=== PATIENT | female | born 1930 | race American Indian/Alaskan Native ===

== ENCOUNTER 2017-03-24 11:18 | Emergency (ER) | payer MEDICARE ==
[2017-03-24 12:25] VITALS: O2SAT 98
[2017-03-24 12:32] VITALS: BMI 28.1
--- NOTE | 2017-03-24 13:10 | ED PDOC ---
Arrival/HPI - General Historian: Patient <VANITA CURRIE - Last Filed: 03/24/17 14:32> <Ag Polanco DO - Last Filed: 03/24/17 14:36> - General Chief Complaint: Lower Extremity Problem/Injury Time Seen by Provider: 03/24/17 12:23 - History of Present Illness Narrative History of Present Illness (Text): 03/24/17 13:08 Mrs. Corey is a 86 year old female with a pmh significant for COPD, CHF, and hx of PNA who presents with great right toe pain. Pt reports going to her PCP on Wednesday and receiving codeine with Tylenol for a headache and beginning on Wednesday she noticed welling adn pain in her right great toe. Pt describes pain as constant burning pain rated as 5/10 during the day and 10/10 at night. Pt reports pain is worse with pressure and bearing weight. She indicates soaking her foot in vinegar and Epsom salt as alleviating. She denies any previous history of gout. Pt denies any loss of feeling or gait instability. (VANITA CURRIE) Past Medical History - Provider Review Nursing Documentation Reviewed: Yes - Past History Past History: Non-Contributing - Infectious Disease Hx of Infectious Diseases: None - Cardiac Hx Cardiac Disorders: Yes Hx Hypertension: Yes - Pulmonary Hx Asthma: Yes - Neurological Hx Paralysis: No - HEENT Hx HEENT Disorder: Yes Other/Comment: glasses - Renal Hx Renal Disorder: No - Endocrine/Metabolic Hx Endocrine Disorders: Yes Hx Diabetes Mellitus Type 2: Yes (NIDD) - Hematological/Oncological Hx Blood Disorders: No Hx Blood Transfusions: No Hx Blood Transfusion Reaction: No - Musculoskeletal/Rheumatological Hx Musculoskeletal Disorders: Yes - Gastrointestinal Hx Gastrointestinal Disorders: Yes Hx Gastroesophageal Reflux: Yes Other/Comment: PUD - Genitourinary/Gynecological Hx Genitourinary Disorders: No - Psychiatric Hx Emotional Abuse: No Hx Physical Abuse: No Hx Substance Use: No - Surgical History Hx Hysterectomy: Yes Hx Tonsillectomy: Yes Other/Comment: hiatal hernia - Anesthesia Hx Anesthesia: Yes Hx Anesthesia Reactions: No Hx Malignant Hyperthermia: No - Suicidal Assessment Feels Threatened In Home Enviroment: No <VANITA CURRIE - Last Filed: 03/24/17 14:32> Family/Social History Family/Social History: Unknown Family HX Smoking Status: Former Smoker Hx Alcohol Use: Yes (BEERS ON WEEKEND) Hx Substance Use: No <VANITA CURRIE - Last Filed: 03/24/17 14:32> Allergies/Home Meds <VANITA CURRIE - Last Filed: 03/24/17 14:32> <Ag Polanco DO - Last Filed: 03/24/17 14:36> Allergies/Adverse Reactions: Allergies No Known Allergies Allergy (Verified 03/24/17 12:29) Home Medications: Home Meds Medication Instructions Recorded Confirmed Doxazosin [Cardura] 2 mg PO DAILY 03/24/17 03/24/17 GlipiZIDE [Glucotrol] 5 mg PO DAILY 03/24/17 03/24/17 Montelukast [Singulair] 10 mg PO DAILY 03/24/17 03/24/17 Pantoprazole [Protonix Inj] 40 mg PO DAILY 03/24/17 03/24/17 Simvastatin [Zocor] 20 mg PO DAILY 03/24/17 03/24/17 Valsartan/Hydrochlorothiazide 12.5 mg PO DAILY 03/24/17 03/24/17 [Valsartan-Hctz 160-12.5 mg Tab] Verapamil [Calan SR Tab] 1 tab PO DAILY 03/24/17 03/24/17 Review of Systems - Review of Systems Constitutional: absent: Fatigue, Weight Change Eyes: absent: Vision Changes Respiratory: Cough (chronic), Sputum. absent: SOB Cardiovascular: absent: Chest Pain, Palpitations Gastrointestinal: absent: Abdominal Pain, Stool Changes Genitourinary Female: absent: Dysuria, Frequency Skin: Other (redness to great big toe on right) Neurological: absent: Headache, Dizziness Endocrine: absent: Diaphoresis, Polyuria Psychiatric: absent: Anxiety, Depression <VANITA CURRIE - Last Filed: 03/24/17 14:32> Physical Exam Vital Signs Reviewed: Yes Temperature: Afebrile Blood Pressure: Normal Pulse: Regular Respiratory Rate: Normal Appearance: Positive for: Well-Appearing Pain Distress: Mild Mental Status: Positive for: Alert and Oriented X 3 - Systems Exam Head: Present: Atraumatic, Normocephalic Pupils: Present: PERRL Extroacular Muscles: Present: EOMI Conjunctiva: Present: Normal Neck: Present: Normal Range of Motion Respiratory/Chest: Present: Clear to Auscultation, Good Air Exchange. No: Respiratory Distress, Accessory Muscle Use Cardiovascular: Present: Regular Rate and Rhythm, Normal S1, S2 Abdomen: Present: Normal Bowel Sounds. No: Tenderness, Distention Upper Extremity: Present: Normal Inspection, NORMAL PULSES. No: Cyanosis, Edema Lower Extremity: Present: NORMAL PULSES, Tenderness (great right toe), Erythema (1st metatarsal) Neurological: Present: GCS=15, CN II-XII Intact, Speech Normal Skin: Present: Warm, Dry, Erythematous (right dorsal 1st metatarsal region ) Psychiatric: Present: Alert, Oriented x 3, Normal Affect <VANITA CURRIE - Last Filed: 03/24/17 14:32> Medical Decision Making <VANITA CURRIE - Last Filed: 03/24/17 14:32> <Ag Polanco DO - Last Filed: 03/24/17 14:36> ED Course and Treatment: 03/24/17 13:16 Impression: Mrs. Corey is a 86 year old female complaining of right great toe pain that has been ongoing for past 4 days. Differential Diagnosis included but are not limited to: - Right first metatarsal sprain - Acute flare of gout Plan: - Motrin - Xray of right foot -- Reassess and disposition Progress Notes: 03/24/17 14:30 Rt. Foot xray: No fracture or osseous destruction. First metatarsal-phalangeal joint arthrosis. (VANITA CURRIE) Patient Seen With Resident: In agreement with resident note. Patient was seen and evaluated with resident, came up with plan and treatment together. An 86 year old female with great right toe pain. Additional HPI as noted by resident. On physical exam, patient has great right toe tenderness and erythematous right dorsal 1st metatarsal region. Ordered radiology of right foot. Will give patient motrin. (Ag Polanco DO) - RAD Interpretation Radiology Orders: 03/24/17 12:53 FOOT RIGHT 3 VIEWS ROUTINE [RAD] Stat - Medication Orders Current Medication Orders: Discontinued Medications Ibuprofen (Motrin Tab) 600 mg PO STAT STA Stop: 03/24/17 12:58 Last Admin: 03/24/17 13:11 Dose: 600 mg - PA / [employer] / Resident Statement SANTHOSH has reviewed & agrees with the documentation as recorded. / has examined the patient and agrees with the treatment plan. <VANITA CURRIE - Last Filed: 03/24/17 14:32> - Scribe Statement The provider has reviewed the documentation as recorded by the Scribe <Ag Polanco DO - Last Filed: 03/24/17 14:36> - Scribe Statement Matthew Colbert Provider Scribe Attestation: All medical record entries made by the Scribe were at my direction and personally dictated by me. I have reviewed the chart and agree that the record accurately reflects my personal performance of the history, physical exam, medical decision making, and the department course for this patient. I have also personally directed, reviewed, and agree with the discharge instructions and disposition. (Ag Polanco DO) Disposition/Present on Arrival - Present on Arrival Any Indicators Present on Arrival: No History of DVT/PE: No History of Uncontrolled Diabetes: No Urinary Catheter: No History of Decub. Ulcer: No History Surgical Site Infection Following: None - Disposition Have Diagnosis and Disposition been Completed?: Yes Disposition Time: 14:30 <VANITA CURRIE - Last Filed: 03/24/17 14:32> <Ag Polanco DO - Last Filed: 03/24/17 14:36> - Disposition Diagnosis: Arthrosis Disposition: HOME/ ROUTINE Referrals: Regine Coronel DO [Primary Care Provider] - Follow up with primary
--- NOTE | 2017-03-24 14:21 | RAD ---
PROCEDURE: Right Foot Radiographs. HISTORY: right great toe pain COMPARISON: None. FINDINGS: BONES: Normal. No fracture. JOINTS: First metatarsal-phalangeal joint arthrosis SOFT TISSUES: Normal. OTHER FINDINGS: Sissoring of the 3rd 4th and 5th toes over the 2nd 3rd 4th IMPRESSION: No fracture or osseous destruction. First metatarsal-phalangeal joint arthrosis
[2017-03-24 15:31] VITALS: BP 140/79; PULSE 68; RESP 16; TEMP 97.7
== END 2017-03-24 15:32 | disposition home or self-care (01) ==
LOC: ED 11:18
DX: M19.90 Unspecified osteoarthritis, unspecified site (principal)